=== PATIENT | female | born 1980 | race Caucasian/White ===

== ENCOUNTER 2016-10-21 23:23 | Emergency (ER) | payer OTHER ==
[~2016-10-21] VITALS: Ht 170.2 cm; Wt 74.5 kg
[~2016-10-21 23:23] MED LIST: ADVAIR 500/501 DISK IH; BUTALB-APAP-CA1 EACH PO; CETIRIZINE HCL10 M2 PO; CLONAZEPAM0.5 MG PO; CYANOCOBALAM1000 MCG PO; ENDOCET 5-3251 EACH PO; FENOFIBRATE160 M1 PO; HYDROXYZINE PAM25 MG PO; MORPHINE SULFAT15 M1 PO; MOTRIN600 MG PO; OMEPRAZOLE20 M2 PO; PEPCID AC10 MG PO; PERCOCET 5-3251 EACH PO; SERTRALINE HCL100 MG PO; TOPIRAMATE100 MG PO; TRAZODONE HCL100 MG PO; VENTOLIN HFA18 GM IH
[2016-10-21] MEDS ORDERED: KEFLEX500 MG PO (23:50)
[2016-10-21 23:54] VITALS: BP 117/78
== END 2016-10-22 00:04 | disposition home or self-care (01) ==
LOC: EME 23:23 → EXP 23:23
DX: T25.222A Burn of second degree of left foot, initial encounter (principal); X15.8XXA Contact with other hot household appliances, initial encounter
CPT/HCPCS: 99281; 99284

== ENCOUNTER 2017-05-31 19:12 | Emergency (ER) | payer OTHER ==
[~2017-05-31] VITALS: Ht 167.6 cm; Wt 70.0 kg
[~2017-05-31 19:12] MED LIST changes: +KEFLEX500 MG PO
[2017-05-31] MEDS ORDERED: NAPROSYN500 MG PO (21:12)
[2017-05-31] MEDS ORDERED: NORCO 5/3251 TABLET PO (21:12)
[2017-05-31 21:18] VITALS: BP 116/75
== END 2017-05-31 21:25 | disposition home or self-care (01) ==
LOC: EXP 19:12 → EME 19:12 → EXP 21:25
DX: S93.402A Sprain of unspecified ligament of left ankle, initial encounter (principal); X50.9XXA Other and unspecified overexertion or strenuous movements or postures, initial encounter; Y92.812 Truck as the place of occurrence of the external cause; F17.200 Nicotine dependence, unspecified, uncomplicated
CPT/HCPCS: 73610; 73630; 99281; 99284